=== PATIENT | female | born 1965 | race Caucasian/White ===

== ENCOUNTER → 2016-10-19 15:18 | Emergency (ER) | payer SELFPAY ==
--- NOTE | 2016-10-19 16:05 | HP ---
H&P (Free Text) History and Physical: History and physical: Patient is a smoker. Otherwise healthy. Takes no medications. Has no diagnoses. Denies current or recent illness. Denies recent hospitalization stays. No limitations on her physical or mental abilities per patient. Patient wears glasses. No other assisting devices. Denies alcohol use. Currently is employed as a home health aide. Lives alone. Eye exam WNL with glasses. No history of family illnesses of known. Past medical history negative. Past surgical history includes tubal ligation and 2 c- section surgeries. Review of Systems: Constitutional: The patient denies fever, DURAN. HEENT: Head: The patient denies headaches or dizziness. Eyes: The patient denies diplopia, blurry vision, eye pain, eye discharge, photophobia. Throat: The patient denies sore throats or hoarseness. Cardiovascular: The patient denies chest pain, palpitations, syncope, night cramps, or orthostasis. Respiratory: The patient denies cough, sputum production, hemoptysis, dyspnea, wheezing. Gastrointestinal: The patient denies odynophagia, dysphagia, hematemesis, melenemesis. Denies abdominal pain, nausea or vomiting. Denies constipation or diarrhea. Genitourinary: Patient denies dysuria, hematuria, or pyuria. Patient denies back pain. Denies vaginal discharge, vaginal bleeding. Denies other urinary symptoms. Endocrine: The patient denies polydipsia, polyuria, or polyphagia. Muscles: The patient denies myalgia, strain or weakness. Joints: The patient denies arthralgia and/or arthritis. Neurologic: The patient denies headache, loss of consciousness, or seizure. Dermatologic: The patient denies hyperpigmentation, rash, or photosensitivity. Physical Exam: Appearance: WDW, comfortable, pleasant, alert Skin: Soft dry skin, no lesions. Nailbeds pink with no cyanosis or clubbing. No petechia noted. Eyes: NIRU, EOMI, Conjunctiva pink with no redness or exudates. Mouth: Dentition without lesions. Moist mucosa Neck: Full range of motion. Palpable thyroid. Trachea at midline. No lymphadenopathy. Pulm: Chest symmetrical expansion. No deformities on posterior chest wall. Lungs clear to auscultation and percussion, without adventitious sounds. CV: No JVD. No deformities on anterior chest wall. Heart sounds RRR, Normal S1 and single S2. No S3, S4, rubs, or murmurs. Carotids 2+ bilaterally without bruits. . exam not performed Musculoskeletal: Flexion and extension of neck limited d/t pain. Brudzynski and Kernig sign negative. No deformities noted. Pulses full and equal. Neuro: Motor strength is 5/5 in upper and lower extremities bilaterally. A&OX3 Psych: Logical, coherent Patient is cleared for work.
== END | disposition home or self-care (01) ==
LOC: OHCORT 15:18 → UCCORT 15:18
DX: Z02.1 Encounter for pre-employment examination (principal)

== ENCOUNTER 2017-10-19 19:08 | Emergency (ER) | payer SELFPAY ==
[2017-10-19 20:07] VITALS: BP 106/68
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
== END 2017-10-19 20:44 | disposition home or self-care (01) ==
LOC: UCCORT 19:08
DX: S09.8XXA Other specified injuries of head, initial encounter (principal); V49.40XA Driver injured in collision with unspecified motor vehicles in traffic accident, initial encounter; Y93.9 Activity, unspecified; Y99.9 Unspecified external cause status; F17.210 Nicotine dependence, cigarettes, uncomplicated
CPT/HCPCS: 99211; G0463